=== PATIENT | female | born 1980 | race American Indian/Alaskan Native ===

== ENCOUNTER 2017-06-25 14:39 | Emergency (ER) | payer OTHER ==
[2017-06-25 14:44] VITALS: RESP 18
[2017-06-25 14:46] VITALS: BMI 31.9
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
[2017-06-25 15:56] LABS: ALB/GLOB RATIO 1.2 (1.1-1.8); ALT/SGPT 20 U/L (7-56); AST/SGOT 20 U/L (15-39); BLOOD UREA NITROGEN 9 mg/dL (7-21); CALCIUM 9.9 mg/dL (8.4-10.5); GFR AFRICAN-AMERICAN > 60; GFR NON-AFRICAN AMERICAN > 60
[2017-06-25 15:57] LABS: SALICYLATE < 1 mg/dL (2.0-20.0)
[2017-06-25 15:58] LABS: BASO # 0.01 K/mm3 (0.0-2.0); BASO % 0.2 % (0.0-3.0); EOS # 0.1 (0.0-0.7); GRAN # 3.06 (1.4-6.5); GRAN % 51.7 % (50.0-68.0); HEMOGLOBIN 10.6 g/dL (12.0-16.0); LYMPH # 2.2 (1.2-3.4); LYMPH % 37.5 % (22.0-35.0); MEAN CELL VOLUME 75.1 fl (80.0-105.0); MEAN CORPUSCULAR HEMOGLOBIN 23.8 pg (25.0-35.0); MEAN CORPUSCULAR HGB CONC 31.6 g/dl (31.0-37.0); MEAN PLATELET VOLUME 9.6 fl (7.0-11.0); MONO # 0.5 (0.1-0.6); MONO % 8.6 % (1.0-6.0); PLATELET COUNT 349 10^3/uL (120.0-450.0); RBC 4.46 10^6/uL (3.5-6.1); RED CELL DISTRIBUTION WIDTH 20.5 % (11.5-14.5); WHITE BLOOD COUNT 5.9 10^3/ul (4.5-11.0)
[2017-06-25 15:59] LABS: URINE BILIRUBIN NEGATIVE (NEGATIVE); URINE BLOOD LARGE (NEGATIVE); URINE GLUCOSE (UA) NEGATIVE (NEGATIVE); URINE LEUKOCYTE ESTERASE NEGATIVE Leu/uL (NEGATIVE); URINE NITRATE NEGATIVE (NEGATIVE); URINE PROTEIN NEGATIVE mg/dL (<30 mg/dL); URINE UROBILINOGEN 0.2 E.U./dL (<1 E.U./dL)
[2017-06-25 16:05] LABS: URINE APPEARANCE CLEAR (CLEAR); URINE COLOR YELLOW (YELLOW)
[2017-06-25 16:06] LABS: BARBITURATES, UR NEGATIVE (NEGATIVE); BENZODIAZEPINES, UR NEGATIVE (NEGATIVE); HCG,QUALITATIVE URINE NEGATIVE (NEGATIVE); OPIATES, UR NEGATIVE (NEGATIVE); PHENCYCLIDINE, UR POSITIVE (NEGATIVE)
[2017-06-25 16:07] LABS: ACETAMINOPHEN < 10.0 ug/ml (10.0-20.0)
[2017-06-25 16:36] LABS: URINE BACTERIA SMALL (NEG); URINE WBC 0 - 2 /hpf (0-6)
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
--- NOTE | 2017-06-25 16:47 | RAD ---
PROCEDURE: CHEST RADIOGRAPH, 1 VIEW HISTORY: pysch COMPARISON: None available. FINDINGS: LUNGS: Clear. PLEURA: No pneumothorax or pleural fluid seen. CARDIOVASCULAR: Normal. OSSEOUS STRUCTURES: No significant abnormalities. VISUALIZED UPPER ABDOMEN: Normal. OTHER FINDINGS: None. IMPRESSION: No active disease.
--- NOTE | 2017-06-25 17:11 | CT ---
PROCEDURE: CT Cervical Spine without contrast HISTORY: <trauma> COMPARISON: None available. TECHNIQUE: Axial computed tomography images were obtained of the cervical spine without the use of intravenous contrast. Coronal and sagittal reformatted images were created and reviewed. Radiation dose: Total exam DLP = 514.67 mGy-cm. This CT exam was performed using one or more of the following dose reduction techniques: Automated exposure control, adjustment of the mA and/or kV according to patient size, and/or use of iterative reconstruction technique. FINDINGS: VERTEBRAE: No fracture. Reversal of the anatomic lordosis with kyphosis . No destructive bony lesion. DISCS/SPINAL CANAL/NEURAL FORAMINA: No significant central canal or neural foraminal stenosis. Discs heights are grossly preserved. PARASPINAL SOFT TISSUES: Unremarkable. OTHER FINDINGS: None. IMPRESSION: Unremarkable CT of the cervical spine.
--- NOTE | 2017-06-25 19:26 | ED PDOC ---
Physical Exam Vital Signs Temp Pulse Resp BP Pulse Ox 06/26/17 00:40 98.5 F 68 18 110/70 100 06/25/17 22:37 76 18 97/65 L 100 06/25/17 19:00 80 18 118/74 95 06/25/17 18:20 67 18 98/69 L 100 06/25/17 14:44 98.2 F 72 18 109/73 100 Medical Decision Making ED Course and Treatment: 06/25/17 19:00 Patient signed out to me by Dr. Patel. Pending Psych evaluation. 06/26/17 02:22 Pt seen and evaluated by DAWOOD Christopher, who discussed case with Dr. Simons , psychiatrist land lease information clerk. Pt stable for d/c with outpatient follow up at [facility]. - Lab Interpretations Lab Results: 06/25/17 15:20 06/25/17 15:20 Lab Results 06/25/17 15:20: Alcohol, Quantitative < 10 06/25/17 15:20: Salicylates < 1 L, Acetaminophen < 10.0 L 06/25/17 15:20: Urine Opiates Screen Negative, Urine Methadone Screen Negative, Ur Barbiturates Screen Negative, Ur Phencyclidine Scrn Positive H, Ur Amphetamines Screen Negative, U Benzodiazepines Scrn Negative, U Oth Cocaine Metabols Negative, U Cannabinoids Screen Negative 06/25/17 15:20: Sodium 138, Potassium 3.5 L, Chloride 104, Carbon Dioxide 26, Anion Gap 12, BUN 9, Creatinine 0.7, Est GFR ( Amer) > 60, Est GFR (Non- Af Amer) > 60, Random Glucose 103, Calcium 9.9, Total Bilirubin 0.2, AST 20, ALT 20, Alkaline Phosphatase 77, Total Protein 7.4, Albumin 4.0, Globulin 3.4, Albumin/Globulin Ratio 1.2 06/25/17 15:20: Urine Color Yellow, Urine Appearance Clear, Urine pH 6.0, Ur Specific [place] 1.025, Urine Protein Negative, Urine Glucose (UA) Negative, Urine Ketones Negative, Urine Blood Large H, Urine Nitrate Negative, Urine Bilirubin Negative, Urine Urobilinogen 0.2, Ur Leukocyte Esterase Negative, Urine RBC 2 - 5, Urine WBC 0 - 2, Ur Epithelial Cells 1 - 3, Urine Bacteria Small, Urine Other Mucus, Urine HCG, Qual Negative 06/25/17 15:20: WBC 5.9, RBC 4.46, Hgb 10.6 L, Hct 33.5 L, MCV 75.1 L, MCH 23.8 L, MCHC 31.6, RDW 20.5 H, Plt Count 349, MPV 9.6, Gran % 51.7, Lymph % (Auto) 37.5 H, [place] % (Auto) 8.6 H, Eos % (Auto) 2.0, Baso % (Auto) 0.2, Gran # 3.06, Lymph # 2.2, Holmes # 0.5, Eos # 0.1, Baso # 0.01 - RAD Interpretation Radiology Orders: 06/25/17 15:06 CHEST ONE VIEW [RAD] Stat SHOULDER RIGHT [RAD] Stat 06/25/17 15:08 CERVICAL SPINE W/O CONTRAST [CT] Stat HEAD W/O CONTRAST [CT] Stat - Scribe Statement The provider has reviewed the documentation as recorded by the Alexibrobb Carroll Provider Scribe Attestation: All medical record entries made by the Scribe were at my direction and personally dictated by me. I have reviewed the chart and agree that the record accurately reflects my personal performance of the history, physical exam, medical decision making, and the department course for this patient. I have also personally directed, reviewed, and agree with the discharge instructions and disposition. Disposition/Present on Arrival - Present on Arrival Any Indicators Present on Arrival: No History of DVT/PE: No History of Uncontrolled Diabetes: No Urinary Catheter: No History of Decub. Ulcer: No History Surgical Site Infection Following: None - Disposition Have Diagnosis and Disposition been Completed?: Yes Diagnosis: Phencyclidine (PCP) intoxication Disposition: HOME/ ROUTINE Disposition Time: 02:23 Patient Plan: Discharge Patient Problems: Current Active Problems Problem Status Onset Phencyclidine (PCP) intoxication Acute Condition: STABLE Additional Instructions: Avoid PCP drug use/[facility] Referrals: Khris Marcus MD [Primary Care Provider] - Follow up with primary [facility] [Outside] - Follow up with primary
[2017-06-25 22:38] VITALS: O2SAT 100
[2017-06-26 00:41] VITALS: BP 110/70; PULSE 68; TEMP 98.5
--- NOTE | 2017-06-26 09:40 | CARD ---
APPROVED REPORT EKG Measurement Heart [id number] <Conclusion> Normal sinus rhythm Normal ECG
== END 2017-06-26 04:39 | disposition home or self-care (01) ==
LOC: ED 14:39
DX: F16.129 Hallucinogen abuse with intoxication, unspecified (principal)